=== PATIENT | male | born 1950 | race American Indian/Alaskan Native ===

== ENCOUNTER 2017-12-23 10:44 | Inpatient (IN) | payer MEDICARE ==
[2017-12-23] MEDS ORDERED: NACL 0.9% 1000 ML IV ONE (12:13)
--- NOTE | 2017-12-23 12:18 | Emergency Department Report ---
ED General Adult HPI - General Chief complaint: Altered Mental Status Stated complaint: AMS Time Seen by Provider: 12/23/17 12:03 Source: EMS Mode of arrival: Stretcher Limitations: Physical Limitation, Other - History of Present Illness Initial comments: Patient is 67-year-old male, prison patient, history of dementia, CVA my retention and depression with significant contracture. Patient was sent for evaluation of abnormal vital sign which include tachycardia. senior living staff stated that patient is not acting his normal with more diaphoresis. Patient is not communicating so most history is from the nursing staff and previous medical record. Patient is tachycardic with a low blood pressure, septic code immediately called Severity scale (0 -10): 0 - Related Data Allergies Allergy/AdvReac Type Severity Reaction Status Date / Time No Known Allergies Allergy Verified 12/23/17 11:49 ED Review of Systems ROS: Stated complaint: AMS Other details as noted in HPI Comment: Unobtainable due to pts medical conditions ED Past Medical Hx - Past Medical History Previous Medical History?: Yes Hx Hypertension: Yes Hx CVA: Yes Hx Dementia: Yes Additional medical history: depression, HLD, non-verbal, aphasia, dysphagia, contractures - Social History Smoking Status: Unknown if ever smoked ED Physical Exam - General Limitations: Physical Limitation, Other General appearance: alert, in no apparent distress - Head Head exam: Present: atraumatic, normocephalic, normal inspection - Eye Eye exam: Present: normal appearance - ENT ENT exam: Present: mucous membranes dry - Neck Neck exam: Present: normal inspection, full ROM. Absent: tenderness, meningismus - Respiratory Respiratory exam: Present: decreased breath sounds - Cardiovascular Cardiovascular Exam: Present: tachycardia - GI/Abdominal GI/Abdominal exam: Present: soft, normal bowel sounds. Absent: distended, tenderness, guarding, rebound, rigid, organomegaly, mass, bruit, pulsatile mass , hernia - Extremities Exam Extremities exam: Present: normal inspection - Neurological Exam Neurological exam: Present: alert - Skin Skin exam: Present: warm, dry, intact ED Course Vital Signs 12/23/17 12/23/17 12/23/17 10:48 10:50 10:56 Temperature 98.8 F Pulse Rate 114 H 112 H Respiratory 13 13 13 Rate Blood Pressure 140/86 O2 Sat by Pulse 96 96 Oximetry 12/23/17 12/23/17 11:15 11:45 Temperature Pulse Rate 114 H 110 H Respiratory 18 17 Rate Blood Pressure 140/86 111/86 O2 Sat by Pulse 99 Oximetry ED Medical Decision Making - Lab Data Result diagrams: 12/23/17 12:25 12/23/17 12:25 - Radiology Data Radiology results: report reviewed Referring Physician: CHRISTY CARARNZA Patient Name: DEBRA JONES Date of : 1950 Sex: Male Report Date: 2017-12-23 Report Status: Finalized Findings [facility] [address] [place] [address] XRay Report Signed Patient: DEBRA JONES MR#: [id number] : 1950 Acct:[id number] Age/Sex: 67 / M ADM Date: 12/23/17 Loc: ED Attending Dr: Ordering Physician: CHRISTY CARRANZA Date of Service: 12/23/17 Procedure(s): XR chest 1V ap Accession Number(s): [id number] cc: CHRISTY CARRANZA Fluoro Time In Minutes: PORTABLE SUPINE CHEST: Sepsis. An AP portable view of the chest demonstrates a normal cardiac contour considering the limits of this technique. The lungs are clear with no evidence of infiltrate, fluid or failure. IMPRESSION: Normal portable chest. Transcribed By: Saumya Dictated By: GIANCARLO LAWS MD Electronically Authenticated By: GIANCARLO LAWS MD Signed Date/Time: 12/23/17 131 DD/ 1310 TD/TT: 12/23/171310 - Medical Decision Making I discussed the patient with Dr Chiang, he agreed to admit to his service. Critical Care Time: Yes Critical care time in (mins) excluding proc time.: 30 Critical care attestation.: If time is entered above; I have spent that time in minutes in the direct care of this critically ill patient, excluding procedure time. ED Disposition Clinical Impression: Sepsis, UTI (urinary tract infection) Disposition: OP ADMIT IP TO THIS HOSP Is pt being admited?: Yes Condition: Stable Referrals: [facility] [Other] - 3-5 Days
[2017-12-23 12:36] LABS: Basophils # (Auto) 0.1 K/mm3 (0.0-0.1); Basophils % (Auto) 0.8 % (0.0-1.8); Eosinophils % (Auto) 0.3 % (0.0-4.3); Hematocrit 35.1 % (35.5-45.6); Hemoglobin 11.4 gm/dl (11.8-15.2); Lymphocytes # (Auto) 1.3 K/mm3 (1.2-5.4); Lymphocytes % (Auto) 9.6 % (13.4-35.0); Mean Corpuscular HGB Conc 32 % (32-34); Mean Corpuscular Hemoglobin 29 pg (28-32); Mean Corpuscular Volume 88 fl (84-94); Monocytes % (Auto) 7.3 % (0.0-7.3); Platelet Count 275 K/mm3 (140-440); Red Blood Count 3.98 M/mm3 (3.65-5.03); Red Cell Distribution Width 16.4 % (13.2-15.2)
[2017-12-23 12:54] LABS: Alanine Aminotransferase 14 units/L (7-56); Albumin 3.5 g/dL (3.9-5); BUN/Creatinine Ratio 42; Blood Urea Nitrogen 46 mg/dL (9-20); Calcium 10.5 mg/dL (8.4-10.2); Hemolysis Index 43
[2017-12-23 13:08] LABS: Bacteria,Urine 1+ /HPF (Negative); Bilirubin,Urine NEG (Negative); Blood,Urine NEG (Negative); Color,Urine Yellow (Yellow); Mucus,Urine FEW /HPF
--- NOTE | 2017-12-23 13:32 | XRay Report ---
PORTABLE SUPINE CHEST: Sepsis. An AP portable view of the chest demonstrates a normal cardiac contour considering the limits of this technique. The lungs are clear with no evidence of infiltrate, fluid or failure. IMPRESSION: Normal portable chest.
--- NOTE | 2017-12-23 13:40 | History and Physical Report ---
History of Present Illness Chief complaint: confused History of present illness: 67 YO Male SNF Resident with HTN, CVA with Dysphagia, Dementia, HLD, Debility, contracture, Malnutrition presents to ED for evaluation. Pt is confused, nonverbal, and unable to provide history. Pt history taken from ED Staff, EMS and SNF staff. As per SNF staff, the patient has experienced worsening confusion over the past 3 days. Pt was found to be diaphoretic, hypotensive and tachycardic today. EMS notified and patient transported to [facility] for further care and evaluation. Pt seen and evaluated in ED and found to have Sepsis secondary to UTI. No reports of fever, chills, CP, NVD, BRBPR, Trauma, Falls, productive cough, hematuria, or recent ill contacts. Pt admtted to medical floor. Past History Past Medical History: hypertension, stroke, other (Dementia, Debility, contracture) Past Surgical History: No surgical history, Other (reviewed) Social history: single. denies: smoking, alcohol abuse, prescription drug abuse Family history: hypertension Medications and Allergies Allergies Allergy/AdvReac Type Severity Reaction Status Date / Time No Known Allergies Allergy Verified 12/23/17 11:49 Home Medications Medication Instructions Recorded Confirmed Last Taken Type Acetaminophen [Tylenol Arthritis] 650 mg PO Q8H PRN 12/23/17 12/23/17 Unknown History AtorvaSTATin [Lipitor] 40 mg PO QHS 12/23/17 12/23/17 Unknown History Fluticasone [Flonase] 1 spray NS QDAY 12/23/17 12/23/17 Unknown History Folic Acid [Folvite] 1 mg PO QDAY 12/23/17 12/23/17 Unknown History Lisinopril [Zestril] 20 mg PO QDAY 12/23/17 12/23/17 Unknown History amLODIPine [Norvasc] 10 mg PO DAILY 12/23/17 12/23/17 Unknown History Active Meds: Active Medications Piperacillin Sod/Tazobactam Sod (Zosyn/Ns 4.5gm/100ml) 4.5 gm in 100 mls @ 200 mls/hr IV Q8HR CASSIUS; Protocol Review of Systems ROS unobtainable: due to mental status Exam - Constitutional Vitals: Temp Pulse Resp BP Pulse Ox 98.8 F 110 H 17 111/86 99 12/23/17 10:48 12/23/17 11:45 12/23/17 11:45 12/23/17 11:45 12/23/17 11:45 General appearance: Present: mild distress, cachectic - EENT Eyes: Present: PERRL ENT: hearing intact, clear oral mucosa - Neck Neck: Present: supple, normal ROM - Respiratory Respiratory effort: normal Respiratory: bilateral: CTA - Cardiovascular Rhythm: other (tachycardia) Heart Sounds: Present: S1 & S2. Absent: rub, click - Extremities Extremities: pulses symmetrical, No edema Peripheral Pulses: abnormal (Capillary refill greater than 3.6 seconds) - Abdominal General gastrointestinal: Present: soft, non-tender, non-distended, normal bowel sounds Male genitourinary: Present: normal - Integumentary Integumentary: Present: clear, warm, dry - Musculoskeletal Musculoskeletal: gait normal, strength equal bilaterally - Psychiatric Psychiatric: no intact judgment & insight, no memory intact Results - Labs CBC & Chem 7: 12/23/17 12:25 12/23/17 12:25 Labs: Abnormal lab results 12/23/17 12/23/17 12/23/17 Range/Units 12:25 12:25 12:48 WBC 13.5 H (4.5-11.0) K/mm3 Hgb 11.4 L (11.8-15.2) gm/dl Hct 35.1 L (35.5-45.6) % RDW 16.4 H (13.2-15.2) % Lymph % (Auto) 9.6 L (13.4-35.0) % [place] # 1.0 H (0.0-0.8) K/mm3 Seg Neutrophils % 82.0 H (40.0-70.0) % Seg Neutrophils # 11.1 H (1.8-7.7) K/mm3 BUN 46 H (9-20) mg/dL Glucose 106 H (75-100) mg/dL Calcium 10.5 H (8.4-10.2) mg/dL Albumin 3.5 L (3.9-5) g/dL Urine WBC (Auto) 9.0 H (0.0-6.0) /HPF Assessment and Plan - Patient Problems (1) Sepsis Current Visit: Yes Status: Acute Qualifiers: Sepsis type: sepsis due to unspecified organism Qualified Code(s): A41.9 - Sepsis, unspecified organism Plan to address problem: IV antibiotics, IVF resuscitation, monitor uop q shift, serial lactic acid, CBC , Chest X ray, urinalysis, blood cultures (2) UTI (urinary tract infection) Current Visit: Yes Status: Acute Qualifiers: Encounter type: initial encounter Plan to address problem: IV antibiotic therapy, urinalysis, CBC, adult diaper in place (3) Encephalopathy Current Visit: Yes Status: Acute Plan to address problem: Treat sepsis, supportive care, neuro checks, aspiration precautions, seizure precautions. (4) Severe malnutrition Current Visit: Yes Status: Acute Plan to address problem: increased protein intake, protein supplement prn as tolerated. (5) DVT prophylaxis Current Visit: Yes Status: Acute Plan to address problem: SCD to BLE while in bed, prophylactic lovenox
[2017-12-23] MEDS ORDERED: ZOFRAN IV PRN (14:01)
[2017-12-23] MEDS ORDERED: SODIUM CHLORIDE FLUSH SYRINGE 10 ML IV PRN (14:01)
[2017-12-23] MEDS ORDERED: TYLENOL PO PRN (14:01)
[2017-12-23] MEDS ORDERED: NON-FORMULARY (Acetaminophen [Tylenol Arthritis] 650 MG) PO PRN (14:09)
[2017-12-23] MEDS: ZOSYN/NS 4.5GM/100ML 4.5 GM/100 ML VIAL IV SCH ×2 (22:39)
[2017-12-23] MEDS: SODIUM CHLORIDE FLUSH SYRINGE 10 ML IV SCH (22:40)
[2017-12-24] MEDS: ZOSYN/NS 4.5GM/100ML 4.5 GM/100 ML VIAL IV SCH ×3 (05:54→22:42)
[2017-12-24] MEDS ORDERED: ZESTRIL PO SCH (10:00)
[2017-12-24] MEDS ORDERED: FOLVITE PO SCH (10:00)
[2017-12-24] MEDS ORDERED: NORVASC PO SCH (10:00)
[2017-12-24] MEDS ORDERED: LOVENOX SUB-Q SCH ×2 (10:00)
[2017-12-24] MEDS ORDERED: FLONASE NS SCH (10:00)
[2017-12-24] MEDS: SODIUM CHLORIDE FLUSH SYRINGE 10 ML IV SCH ×2 (11:02→22:52)
--- NOTE | 2017-12-24 18:18 | Progress Note ---
Assessment and Plan Assessment and plan: Patient is a 67 yo man from [facility] with a history of hypertension , cva s/p wheelchair bound with contractures, hypertension and dyslipidemia who pw increase confusion, increased contractures. He was admitted UTI. 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 Follow-up on current diagnosis of AMS. Overnight uneventful. Patient is nonverbal. Imaging, nursing note, chart, labs and old chart reviewed. Discussed with patient. Hospitalist Physical - Physical exam Narrative exam: GEN: chronic debilated, nonverbal HEENT: NCAT, EOMI, PERRL, OP dry and pasty NECK: supple, no adenopathy, no thyromegaly, no JVD CVS/HEART: RRR, normal S1S2, pulses present bilaterally CHEST/LUNGS: Symmetrical chest expansion, good air entry bilaterally GI/Abdomen: soft, NTND, good bowel sounds, no guarding or rebound /Bladder: no suprapubic tenderness, no CVA or paraspinal tenderness EXT/Skin: no c/c/e, no obvious rash MSK: contracture x 4 Neuro: CN 2-12 grossly intact, no new focal deficits Psych: calm - Constitutional Vitals: Temp Pulse Resp BP Pulse Ox 99.8 F H 80 18 115/80 98 12/24/17 08:23 12/24/17 11:04 12/24/17 10:00 12/24/17 11:04 12/24/17 10:00 General appearance: Present: mild distress, cachectic Results - Labs CBC & Chem 7: 12/23/17 12:25 12/23/17 12:25 Labs: Laboratory Last Values WBC 13.5 K/mm3 (4.5-11.0) H 12/23/17 12:25 RBC 3.98 M/mm3 (3.65-5.03) 12/23/17 12:25 Hgb 11.4 gm/dl (11.8-15.2) L 12/23/17 12:25 Hct 35.1 % (35.5-45.6) L 12/23/17 12:25 MCV 88 fl (84-94) 12/23/17 12:25 MCH 29 pg (28-32) 12/23/17 12:25 MCHC 32 % (32-34) 12/23/17 12:25 RDW 16.4 % (13.2-15.2) H 12/23/17 12:25 Plt Count 275 K/mm3 (140-440) 12/23/17 12:25 Lymph % (Auto) 9.6 % (13.4-35.0) L 12/23/17 12:25 [place] % (Auto) 7.3 % (0.0-7.3) 12/23/17 12:25 Eos % (Auto) 0.3 % (0.0-4.3) 12/23/17 12:25 Baso % (Auto) 0.8 % (0.0-1.8) 12/23/17 12:25 Lymph # 1.3 K/mm3 (1.2-5.4) 12/23/17 12:25 [place] # 1.0 K/mm3 (0.0-0.8) H 12/23/17 12:25 Eos # 0.0 K/mm3 (0.0-0.4) 12/23/17 12:25 Baso # 0.1 K/mm3 (0.0-0.1) 12/23/17 12:25 Seg Neutrophils % 82.0 % (40.0-70.0) H 12/23/17 12:25 Seg Neutrophils # 11.1 K/mm3 (1.8-7.7) H 12/23/17 12:25 Sodium 144 mmol/L (137-145) 12/23/17 12:25 Potassium 4.3 mmol/L (3.6-5.0) 12/23/17 12:25 Chloride 102.8 mmol/L (98-107) 12/23/17 12:25 Carbon Dioxide 23 mmol/L (22-30) 12/23/17 12:25 Anion Gap 23 mmol/L 12/23/17 12:25 BUN 46 mg/dL (9-20) H 12/23/17 12:25 Creatinine 1.1 mg/dL (0.8-1.5) 12/23/17 12:25 Estimated GFR > 60 ml/min 12/23/17 12:25 BUN/Creatinine Ratio 42 % 12/23/17 12:25 Glucose 106 mg/dL (75-100) H 12/23/17 12:25 Lactic Acid 1.80 mmol/L (0.7-2.0) 12/23/17 18:44 Calcium 10.5 mg/dL (8.4-10.2) H 12/23/17 12:25 Total Bilirubin 0.40 mg/dL (0.1-1.2) 12/23/17 12:25 AST 22 units/L (5-40) 12/23/17 12:25 ALT 14 units/L (7-56) 12/23/17 12:25 Alkaline Phosphatase 95 units/L (35-129) 12/23/17 12:25 Total Protein 7.9 g/dL (6.3-8.2) 12/23/17 12:25 Albumin 3.5 g/dL (3.9-5) L 12/23/17 12:25 Albumin/Globulin Ratio 0.8 % 12/23/17 12:25 Urine Color Yellow (Yellow) 12/23/17 12:48 Urine Turbidity Clear (Clear) 12/23/17 12:48 Urine pH 5.0 (5.0-7.0) 12/23/17 12:48 Ur Specific [place] 1.026 (1.003-1.030) 12/23/17 12:48 Urine Protein 30 mg/dl mg/dL (Negative) 12/23/17 12:48 Urine Glucose (UA) Neg mg/dL (Negative) 12/23/17 12:48 Urine Ketones Neg mg/dL (Negative) 12/23/17 12:48 Urine Blood Neg (Negative) 12/23/17 12:48 Urine Nitrite Neg (Negative) 12/23/17 12:48 Urine Bilirubin Neg (Negative) 12/23/17 12:48 Urine Urobilinogen 2.0 mg/dL (<2.0) 12/23/17 12:48 Ur Leukocyte Esterase Sm (Negative) 12/23/17 12:48 Urine WBC (Auto) 9.0 /HPF (0.0-6.0) H 12/23/17 12:48 Urine RBC (Auto) 2.0 /HPF (0.0-6.0) 12/23/17 12:48 Urine Bacteria (Auto) 1+ /HPF (Negative) 12/23/17 12:48 Urine Mucus Few /HPF 12/23/17 12:48
[2017-12-25] MEDS: ZOSYN/NS 4.5GM/100ML 4.5 GM/100 ML VIAL IV SCH (06:02)
--- NOTE | 2017-12-25 12:14 | Discharge Summary ---
Providers - Providers Date of Admission: 12/23/17 14:01 Date of discharge: 12/25/17 Attending physician: JOYCELYN LEVY Hospitalization Condition: Stable Hospital course: Patient is a 67 yo man from [facility] with a history of hypertension , cva s/p wheelchair bound with contractures, hypertension and dyslipidemia who pw increase confusion, increased contractures. He was admitted UTI. 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 -CVA with contractures by history: PT/ot -DVT prophylaxis: sq lovenox D/c back to [facility] Disposition: [id number]/TX-03 SNF W [facility] Time spent for discharge: 32 minutes Core Measure Documentation - Palliative Care Palliative Care/ Comfort Measures: Not Applicable - Core Measures Any of the following diagnoses?: none - VTE Discharge Requirements Deep Vein Thrombosis/Pulmonary Embolism Present on Admission: No Has pt received <5 days of overlap therapy or INR<2.0: No Anticoagulant overlap therapy prescribed at discharge: No Contraindication No Overlap Therapy order at DC: Not Indicated Exam - Physical Exam Narrative exam: GEN: chronic debilated, nonverbal HEENT: NCAT, EOMI, PERRL, OP dry and pasty NECK: supple, no adenopathy, no thyromegaly, no JVD CVS/HEART: RRR, normal S1S2, pulses present bilaterally CHEST/LUNGS: Symmetrical chest expansion, good air entry bilaterally GI/Abdomen: soft, NTND, good bowel sounds, no guarding or rebound /Bladder: no suprapubic tenderness, no CVA or paraspinal tenderness EXT/Skin: no c/c/e, no obvious rash MSK: contracture x 4 Neuro: CN 2-12 grossly intact, no new focal deficits Psych: calm - Constitutional Vitals: Temp Pulse Resp BP Pulse Ox 98.4 F 80 20 127/78 97 12/25/17 07:38 12/25/17 07:38 12/25/17 07:38 12/25/17 07:38 12/25/17 07:38 Plan Activity: up only with assistance, fall precautions Diet: per dietitian instruction Follow up with: MIRELLA OLMEDO [Other] - 3-5 Days Prescriptions: Ciprofloxacin HCl [Ciprofloxacin TAB] 500 mg PO BID #10 tablet
[2017-12-25 14:28] VITALS: BP 119/73
== END 2017-12-25 15:00 | disposition home or self-care (01) | DRG 871 ==
LOC: ED 10:44 → 2B-ACE 14:01
PROVIDERS: ADMIT Internal Medicine; ATTEND Internal Medicine
DX: A41.9 Sepsis, unspecified organism (principal); E43 Unspecified severe protein-calorie malnutrition; G93.40 Encephalopathy, unspecified; N39.0 Urinary tract infection, site not specified; Z68.1 Body mass index [BMI] 19.9 or less, adult; F03.90 Unspecified dementia, unspecified severity, without behavioral disturbance, psychotic disturbance, mood disturbance, and anxiety; F32.9 Major depressive disorder, single episode, unspecified; I10 Essential (primary) hypertension; Z82.49 Family history of ischemic heart disease and other diseases of the circulatory system; Z86.73 Personal history of transient ischemic attack (TIA), and cerebral infarction without residual deficits; Z79.899 Other long term (current) drug therapy
CPT/HCPCS: 36415; 71045; 80053; 81001; 82140; 85025; 87040; 93005; 93010; A9270-GY; J1650; J2543; J7030